=== PATIENT | female | born 1985 | race Caucasian/White ===

== ENCOUNTER 2016-11-26 17:36 | Emergency (ER) | payer MEDICAID ==
[~2016-11-26] VITALS: Ht 172.7 cm; Wt 78.0 kg
[~2016-11-26 17:36] MED LIST: LACO150T2 PO
[2016-11-26 17:53] VITALS: Ht 172.7 cm; Wt 78.0 kg
[2016-11-26] MEDS ORDERED: morphine 4 MG/ML VIAL IV STA (18:59)
[2016-11-26] MEDS ORDERED: SOD CHLORIDE 0.9% 1,000 ML IV STA (18:59)
[2016-11-26] MEDS ORDERED: FAMOTIDINE 20 MG INJ IV STA (18:59)
[2016-11-26] MEDS ORDERED: ONDANSETRON 4 MG INJ IV STA (18:59)
--- NOTE | 2016-11-26 19:42 | ERD ---
ER Documentation Chief Complaint Date/Time DATE: 11/26/16 TIME: 19:39 Chief Complaint GENERALIZED ABD PAIN AND DIARRHEA X 6 DAYS HPI Patient is a 49-year-old female with a past medical history of epilepsy who presents to the emergency department with generalized abdominal pain and diarrhea 6 days. Patient states that her pain is very upper quadrant and now has progressed to being diffuse. Patient describes the pain to be crampy and sharp in nature. Patient also reports diarrhea for the last 6 days. She states that her stools are yellow watery in color. She denies any blood. Patient reports 4 days 5 episodes of diarrhea daily. Patient states she's taken Pepto- Bismol with no alleviation of symptoms. Denies any fevers, chills, nausea, vomiting. She denies any vaginal bleeding, vaginal discharge, pelvic pain. Patient denies any recent antibiotic use. Patient denies any sick contacts. Patient states that she recently travelled to [facility], returned 6 days ago. He denies any chest pain, shortness of breath, diaphoresis, or loss of consciousness. She reports decreased appetite however she is able to tolerate by mouth fluids. She states that she's been drinking soda given that it helps with the cramping. ROS All systems reviewed and are negative except as per history of present illness. Medications Home Meds Active Scripts Acetaminophen* (Tylophen*) 500 Mg Capsule, 1 CAP PO Q6H Y for PAIN AND OR ELEVATED TEMP, #20 CAP Prov:MARIELY CRUZ PA-C 11/26/16 Ciprofloxacin Hcl* (Ciprofloxacin Hcl*) 500 Mg Tablet, 500 MG PO BID for 3 Days , TAB Prov:MARIELY CRUZ PA-C 11/26/16 Reported Medications Lacosamide (Vimpat) 150 Mg Tablet, 150 MG PO BID, TAB 07/31/16 Allergies Allergies: Coded Allergies: No Known Drug Allergies (Verified Allergy, Unknown, 07/31/16) PMhx/Soc History of Surgery: Yes () Anesthesia Reaction: No Hx Neurological Disorder: Yes (Epilepsy) Hx Respiratory Disorders: No Hx Cardiac Disorders: No Hx Psychiatric Problems: No Hx Miscellaneous Medical Probl: No Hx Alcohol Use: No Hx Substance Use: No Hx Tobacco Use: No FmHx Family History: No diabetes Physical Exam Vitals Vital Signs Date Time Temp Pulse Resp B/P Pulse Ox O2 Delivery O2 Flow Rate FiO2 11/26/16 17:53 98.3 57 19 109/49 98 Physical Exam GENERAL: Well-developed, well-nourished female. Appears in no acute distress. HEAD: Normocephalic, atraumatic. EYES: Pupils are equally reactive bilaterally. EOMs grossly intact. No conjunctival erythema. ENT: Moist mucous membranes. No uvula deviation. No kissing tonsils. NECK: Supple. No lymphadenopathy or thyromegaly. No meningismus. LUNG: Clear to auscultation bilaterally. No rhonchi, wheezing, rales or coarse breath sounds. HEART: Regular rate and rhythm. No murmurs, rubs or gallops. ABDOMEN: No scars, ecchymosis or rashes noted. Soft, and nondistended. Diffusely tender to palpation in all quadrants. More diffuse in LLQ and LUQ. Positive bowel sounds in all four quadrants. No rebound tenderness, no guarding. (-) McBurneys point tenderness. No CVA tenderness. BACK: No midline tenderness. EXTREMITIES: Equal pulses bilaterally. No peripheral clubbing, cyanosis or edema. No unilateral leg swelling. NEUROLOGIC: Alert and oriented. Moving all four extremities without any difficulty. Normal speech. Steady gait. SKIN: Normal color. Warm and dry. No rashes or lesions. Result Diagram: 11/26/16194911/26/161949 Results 24 hrs Laboratory Tests Test 11/26/16 19:50 Alanine Aminotransferase (ALT/SGPT) 55IU/L Albumin 4.4g/dl Albumin/Globulin Ratio 1.25 Alkaline Phosphatase 74IU/L Anion Gap 19 Aspartate Amino Transf (AST/SGOT) 57IU/L Basophils # 0.010^3/ul Basophils % 0.3% Blood Morphology Comment Blood Urea Nitrogen 7mg/dl Calcium Level 9.4mg/dl Carbon Dioxide Level 29mmol/L Chloride Level 100mmol/L Creatinine 0.66mg/dl Direct Bilirubin 0.00mg/dl Eosinophils # 0.310^3/ul Eosinophils % 3.6% Globulin 3.50g/dl Glucose Level 107mg/dl Hematocrit 37.8% Hemoglobin 13.1g/dl Indirect Bilirubin 0.4mg/dl Lipase 121U/L Lymphocytes # 2.310^3/ul Lymphocytes % 26.4% Mean Corpuscular Hemoglobin 29.5pg Mean Corpuscular Hemoglobin Concent 34.6g/dl Mean Corpuscular Volume 85.3fl Mean Platelet Volume 7.2fl Monocytes # 0.610^3/ul Monocytes % 6.9% Neutrophils # 5.410^3/ul Neutrophils % 62.8% Nucleated Red Blood Cells # 0.010^3/ul Nucleated Red Blood Cells % 0.0/100WBC Platelet Count 19879^3/UL Potassium Level 3.5mmol/L Red Blood Count 4.4310^6/ul Red Cell Distribution Width 12.9% Sodium Level 144mmol/L Total Bilirubin 0.4mg/dl Total Protein 7.9g/dl White Blood Count 8.610^3/ul Current Medications Medications (Trade) Dose Ordered Sig/Gray Route PRN Reason Start Time Stop Time Status Last Admin Dose Admin Sodium Chloride (NS) 1,000 ml @ 1,000 mls/hr Q1H STAT IV 11/26/16 18:59 11/26/16 19:58 DC 11/26/16 20:00 Morphine Sulfate (morphine) 4 mg ONCE STAT IV 11/26/16 18:59 11/26/16 19:07 DC 11/26/16 20:01 Ondansetron HCl (Zofran Inj) 4 mg ONCE STAT IV 11/26/16 18:59 11/26/16 19:07 DC 11/26/16 20:01 Famotidine (Pepcid Iv) 20 mg ONCE STAT IV 11/26/16 18:59 11/26/16 19:07 DC 11/26/16 20:02 Procedures/MDM ED COURSE: The patient was stable throughout ED course. I kept the patient and/or family informed of laboratory and diagnostic imaging results throughout the ED course. DIAGNOSTIC IMAGING: Read by radiologist. DIAGNOSTIC IMAGING REPORT Patient: SANTO HEBERT : 1985 Age: 30 Sex: F MR #: [id number] DOS: 11/26/16 1859 Ordering MD: MARIELY CRUZ PA-C Location: [facility] Room/Bed: PROCEDURE: CT abdomen and pelvis without contrast. CLINICAL INDICATION: Generalized abdominal pain and diarrhea TECHNIQUE: CT scan of the abdomen and pelvis without contrast was performed on a multislice CT scanner utilizing axial imaging from the lung bases through the pubis symphysis. The patient was scanned without intravenous contrast. Sagittal and coronal reformatted images were made. The CTDIvol is 13.30 mGy and the DLP is 757.08 mGycm. One of the following 3 dose reduction techniques were used during this CT examination: automated exposure control; adjustment of the mA and /or kV according to patient size; or use of iterative reconstruciton technique. COMPARISON: 03/31/2008 CT abdomen pelvis FINDINGS: The lung bases are clear. The heart size is normal. No pericardial or pleural effusion is present. The visualized liver, spleen, pancreas, gallbladder, and bilateral adrenal glands are normal. The bilateral kidneys are normal without evidence for hydroureter nephrosis or nephroureterolithiasis. The visualized bowel is nonobstructive. No evidence for diverticulosis, diverticulitis, or appendicitis is present. The appendix is normal. The visualized aorta demonstrates no evidence for aneurysmal dilatation or calcifications. No evidence for ascites or pneumoperitoneum. The visualized pelvis demonstrates a decompressed urinary bladder. An intrauterine device is present in the uterus. No evidence for ascites or masses are present. No pathologic lymphadenopathy is present. The evaluation of the imaged osseous structures are normal. IMPRESSION: 1. No evidence for acute intra-abdominal or pelvic pathology. 2. Intrauterine device present in the endometrial cavity. 3. No evidence for pathologic masses, ascites, or pneumoperitoneum. RPTAT: HDC .Mariam Aceves MD, MD Date Time Electronically viewed and signed by .Mariam Aceves MD, MD on 11/26/2016 20: 31 .C/ CC: MARIELY CRUZ PA-C MEDICATIONS GIVEN: IV fluids, Zofran, morphine Patient tolerated medication well with no adverse reactions. Patient reported improvement in pain. MEDICAL DECISION MAKING: This is a 30-year-old female who presents with diffuse abdominal pain and diarrhea 6 days. She reported recent travel to [facility]. Vital signs were reviewed. Patient is afebrile. Abdominal exam revealed diffuse tenderness to palpation in all 4 quadrants. Left upper and left lower quadrants with significant tenderness palpation. CT abdomen and pelvis showed no evidence of acute intra-abdominal or pelvic pathology. CBC showed no evidence of systemic infection or severe anemia. CMP showed no evidence of electrolyte abnormalities, severe acidosis, alkalosis, renal failure, or liver disease. Lipase showed no evidence of acute pancreatitis. Urine test was negative. Patient was unable to provide an adequate amount of urine for UA. At this time unable to rule out UTI or pyelonephritis. At this time, patient's presentation is most consistent with traveler's diarrhea. I have a much lower clinical concern for acute coronary syndrome, mesenteric ischemia, lower lobe pneumonia, DKA, small bowel obstruction, bowel perforation, cholecystitis, choledocholithiasis, hepatic abscess, pancreatitis, diverticulitis, UTI, pyelonephritis, nephrolithiasis, appendicitis, constipation, , PID, ovarian torsion or tubo-ovarian abscess. Stool cultures pending. PRESCRIPTIONS: Ciprofloxacin x 3 days Tylenol DISCHARGE: At this time, patient is stable for discharge and outpatient management. Patient was advised to drink adequate fluids. I have instructed the patient to follow-up with his/her primary care physician in 1-2 days. I have instructed the patient to promptly return to the ER at any time for any new or worsening symptoms including increased pain, nausea, vomiting, diarrhea, fever, weakness or LOC. The patient and/or family expressed understanding of and agreement with this plan. All questions were answered. Home care instructions were provided. Departure Diagnosis: Primary Impression: Diarrhea Diarrhea type: unspecified type Qualified Code: R19.7 - Diarrhea, unspecified type Additional Impression: Abdominal cramps Condition: Stable Patient Instructions: Traveler's Diarrhea (6Y-Adult) Referrals: [facility] YOU HAVE RECEIVED A MEDICAL SCREENING EXAM AND THE RESULTS INDICATE THAT YOU DO NOT HAVE A CONDITION THAT REQUIRES URGENT TREATMENT IN THE EMERGENCY DEPARTMENT. FURTHER EVALUATION AND TREATMENT OF YOUR CONDITION CAN WAIT UNTIL YOU ARE SEEN IN YOUR DOCTORS OFFICE WITHIN THE NEXT 1-2 DAYS. IT IS YOUR RESPONSIBILITY TO MAKE AN APPOINTMENT FOR FOLOW-UP CARE. IF YOU HAVE A PRIMARY DOCTOR --you should call your primary doctor and schedule an appointment IF YOU DO NOT HAVE A PRIMARY DOCTOR YOU CAN CALL OUR PHYSICIAN REFERRAL HOTLINE AT IF YOU CAN NOT AFFORD TO SEE A PHYSICIAN YOU CAN CHOSE FROM THE FOLLOWING [facility] CLINICS [facility] [address] [facility]. [place] [facility] [address] [facility] [address] [facility] [address] [facility] [address] [facility]. [facility] [address] [facility]. [facility] YOU HAVE RECEIVED A MEDICAL SCREENING EXAM AND THE RESULTS INDICATE THAT YOU DO NOT HAVE A CONDITION THAT REQUIRES URGENT TREATMENT IN THE EMERGENCY DEPARTMENT. FURTHER EVALUATION AND TREATMENT OF YOUR CONDITION CAN WAIT UNTIL YOU ARE SEEN IN YOUR DOCTORS OFFICE WITHIN THE NEXT 1-2 DAYS. IT IS YOUR RESPONSIBILITY TO MAKE AN APPOINTMENT FOR FOLOW-UP CARE. IF YOU HAVE A PRIMARY DOCTOR --you should call your primary doctor and schedule and appointment IF YOU DO NOT HAVE A PRIMARY DOCTOR YOU CAN CALL OUR PHYSICIAN REFERRAL HOTLINE AT . IF YOU CAN NOT AFFORD TO SEE A PHYSICIAN YOU CAN CHOSE FROM THE FOLLOWING [facility] INSTITUTIONS: [facility] [address] [place] [address] [facility] [address] [place] [address] [facility] [address] [place] [address] Additional Instructions: Drink lots of fluids. Take antibiotics as prescribed. Complete full course of antibiotics. Call your primary care doctor TOMORROW for an appointment during the next 1-2 days.See the doctor sooner or return here if your condition worsens before your appointment time. MARIELY CRUZ PA-C Nov 26, 2016 19:42
[2016-11-26 20:14] LABS: ALBUMIN 4.4 g/dl (3.3-4.9)
[2016-11-26 20:15] LABS: POTASSIUM 3.5 mmol/L (3.5-5.1)
[2016-11-26 20:16] LABS: BASOPHILS % 0.3 % (0.0-2.0); EOSINOPHILS # 0.3 10^3/ul (0.0-0.5); EOSINOPHILS % 3.6 % (0.0-7.0); HEMATOCRIT 37.8 % (37.0-47.0); HEMOGLOBIN 13.1 g/dl (12.0-16.0); LYMPHOCYTES # 2.3 10^3/ul (0.8-2.9); LYMPHOCYTES % 26.4 % (15.0-51.0); MEAN CORPUSCULAR HEMOGLOBIN 29.5 pg (29.0-33.0); MEAN CORPUSCULAR HGB CONC 34.6 g/dl (32.0-37.0); MEAN CORPUSCULAR VOLUME 85.3 fl (82.0-101.0); MEAN PLATELET VOLUME 7.2 fl (7.4-10.4); MONOCYTE # 0.6 10^3/ul (0.3-0.9); MONOCYTES % 6.9 % (0.0-11.0); NEUTROPHIL # 5.4 10^3/ul (1.6-7.5); NEUTROPHILS % 62.8 % (39.0-77.0); PLATELET COUNT 302 10^3/UL (140-440); RED BLOOD COUNT 4.43 10^6/ul (4.20-5.40); RED CELL DISTRIBUTION WIDTH 12.9 % (11.5-14.5); UNCORRECTED WBC 8.6 10^3/ul (4.8-10.8); WHITE BLOOD COUNT 8.6 10^3/ul (4.8-10.8)
[2016-11-26 20:17] LABS: ALBUMIN/GLOBULIN RATIO 1.25; BILIRUBIN,INDIRECT 0.4 mg/dl (0-1.1); BILIRUBIN,TOTAL 0.4 mg/dl (0.2-1.3); CREATININE 0.66 mg/dl (0.44-1.00); TOTAL PROTEIN 7.9 g/dl (6.1-8.1)
[2016-11-26 20:18] LABS: CALCIUM 9.4 mg/dl (8.4-10.2)
[2016-11-26 20:27] LABS: CONDITION 1
--- NOTE | 2016-11-26 20:31 | RADRPT ---
PROCEDURE: CT abdomen and pelvis without contrast. CLINICAL INDICATION: Generalized abdominal pain and diarrhea TECHNIQUE: CT scan of the abdomen and pelvis without contrast was performed on a multislice CT [facility] utilizing axial imaging from the lung bases through the pubis symphysis. The patient was scann ed without intravenous contrast. Sagittal and coronal reformatted images were made. The CTDIvol is 13.30 mGy and the DLP is 757.08 mGycm. One of the following 3 dose reduction techniques were used during this CT examination: automated exp osure control; adjustment of the mA and /or kV according to patient size; or use of iterative recons truciton technique. COMPARISON: 03/31/2008 CT abdomen pelvis FINDINGS: The lung bases are clear. The heart size is normal. No pericardial or pleural effusion is present. The visualized liver, spleen, pancreas, gallbladder, and bilateral adrenal glands are normal. The b ilateral kidneys are normal without evidence for hydroureter nephrosis or nephroureterolithiasis. The visualized bowel is nonobstructive. No evidence for diverticulosis, diverticulitis, or appendic itis is present. The appendix is normal. The visualized aorta demonstrates no evidence for aneurysmal dilatation or calcifications. No eviden ce for ascites or pneumoperitoneum. The visualized pelvis demonstrates a decompressed urinary bladder. An intrauterine device is presen t in the uterus. No evidence for ascites or masses are present. No pathologic lymphadenopathy is p resent. The evaluation of the imaged osseous structures are normal. IMPRESSION: 1. No evidence for acute intra-abdominal or pelvic pathology. 2. Intrauterine device present in the endometrial cavity. 3. No evidence for pathologic masses, ascites, or pneumoperitoneum. RPTAT: HDC .Mariam Aceves MD, MD Date Time Electronically viewed and signed by .Mariam Aceves MD, MD on 11/26/2016 20:31 .C/
[2016-11-26] MEDS ORDERED: CIPR500T4 PO (21:04)
[2016-11-26] MEDS ORDERED: ACET500C5 PO (21:05)
== END 2016-11-26 21:25 | disposition home or self-care (01) ==
LOC: FTE 17:36
DX: R19.7 Diarrhea, unspecified (principal)
CPT/HCPCS: 36415; 74176; 80053; 83690; 85025; 96374; 96375; J2270; J2405; J7030; Z7502; Z7610

== ENCOUNTER 2017-01-05 17:35 | Emergency (ER) | payer MEDICAID ==
[~2017-01-05] VITALS: Wt 80.1 kg
[~2017-01-05 17:35] MED LIST changes: +ACET500C5 PO; +CIPR500T4 PO
[2017-01-05] MEDS ORDERED: IBUPROFEN 800 MG TAB PO ONE (18:00)
--- NOTE | 2017-01-05 18:36 | RADRPT ---
PROCEDURE: XR sacrum/coccyx CLINICAL INDICATION: Fall, low back pain TECHNIQUE: 3 images of the sacrum and coccyx COMPARISON: CT of the abdomen and pelvis dated November 26, 2015 and radiographs of the lumbar spin e January 05, 2016 FINDINGS: There is a questionable minimally-displaced cortical offset along the anterior margin of the coccyx near the sacrococcygeal junction. 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 There are no erosions. There is an IUD in the pelvis. The soft tissues are otherwise grossly unremarkable. IMPRESSION: 1. Questionable anterior cortical offset at the sacrococcygeal junction may represent a minimally-d isplaced fracture in the setting of recent trauma. CT can be considered for confirmation as clinical ly indicated. 2. IUD within the pelvis. RPTAT: UU .Heath Church MD, MD Date Time Electronically viewed and signed by .Heath Church MD, on 01/05/2017 18:35 .K/
--- NOTE | 2017-01-05 18:37 | RADRPT ---
PROCEDURE: XR Lumbar Spine. CLINICAL INDICATION: Low back pain TECHNIQUE: 3 images of the lumbar spine were obtained. COMPARISON: No prior studies are available for comparison. FINDINGS: There are 5 non rib-bearing lumbar type vertebral bodies. Vertebral body height and alignment is preserved. There is no radiographic evidence of acute fracture or subluxation. Intervertebral disk spaces are preserved. Paraspinal soft tissues are grossly unremarkable. Mild sclerosis at the sacroiliac joints is noted. There is an IUD within the pelvis. IMPRESSION: 1. No radiographic evidence of acute osseous abnormality of the lumbar spine. RPTAT: UU .Heath Church MD, MD Date Time Electronically viewed and signed by .Heath Church MD, on 01/05/2017 18:36 .K/
--- NOTE | 2017-01-05 19:03 | ERD ---
ER Documentation Chief Complaint Date/Time DATE: 01/05/17 TIME: 18:54 Chief Complaint LOW BACK PAIN S/P GLF, NO KO HPI This a 31-year-old female who presents to the emergency department today complaining of low back and tailbone pain after slipping and falling in the snow today. Patient states she put an icy hot patch on. She has not taken any other medication for the pain. States she has pain when she sits down. Suggest a history of seizure disorder. Denies any fevers or chills, loss of bowel or bladder control. ROS All systems reviewed and are negative except as per history of present illness. Medications Home Meds Active Scripts Hydrocodone/Acetaminophen (Given 5-325 Tablet) 1 Each Tablet, 1 TAB PO Q6H Y for PAIN, #12 TAB Prov:ROXANA PALM PA-C 01/05/17 Acetaminophen* (Tylophen*) 500 Mg Capsule, 1 CAP PO Q6H Y for PAIN AND OR ELEVATED TEMP, #30 CAP Prov:ROXANA PALM PA-C 01/05/17 Ibuprofen* (Motrin*) 600 Mg Tab, 600 MG PO Q6, #30 TAB Prov:ROXANA PALM PA-C 01/05/17 Acetaminophen* (Tylophen*) 500 Mg Capsule, 1 CAP PO Q6H Y for PAIN AND OR ELEVATED TEMP, #20 CAP Prov:MARIELY CRUZ PA-C 11/26/16 Ciprofloxacin Hcl* (Ciprofloxacin Hcl*) 500 Mg Tablet, 500 MG PO BID for 3 Days , TAB Prov:MARIELY CRUZ PA-C 11/26/16 Reported Medications Lacosamide (Vimpat) 150 Mg Tablet, 150 MG PO BID, TAB 07/31/16 Allergies Allergies: Coded Allergies: No Known Drug Allergies (Verified Allergy, Unknown, 07/31/16) PMhx/Soc History of Surgery: Yes () Anesthesia Reaction: No Hx Neurological Disorder: Yes (Epilepsy) Hx Respiratory Disorders: No Hx Cardiac Disorders: No Hx Psychiatric Problems: No Hx Miscellaneous Medical Probl: No Hx Alcohol Use: No Hx Substance Use: No Hx Tobacco Use: No Smoking Status: Never smoker Physical Exam Vitals Vital Signs Date Time Temp Pulse Resp B/P Pulse Ox O2 Delivery O2 Flow Rate FiO2 01/05/17 17:37 98.9 104 18 114/58 100 Physical Exam Const: No acute distress Head: Atraumatic Eyes: Normal Conjunctiva ENT: Normal External Ears, Nose and Mouth. Neck: Full range of motion..~ No meningismus. Resp: Clear to auscultation bilaterally Cardio: Regular rate and rhythm, no murmurs Abd: Soft, non tender, non distended. Normal bowel sounds Skin: Tenderness to palpation midline lumbar spine and sacrum and coccyx pulses 2+. Distal neurovascularly intact. Pulses 2+. Neur: Awake and alert Psych: Normal Mood and Affect Results 24 hrs Current Medications Medications (Trade) Dose Ordered Sig/Gray Route PRN Reason Start Time Stop Time Status Last Admin Dose Admin Ibuprofen (Motrin) 800 mg ONCE ONCE PO 01/05/17 18:00 01/05/17 18:01 DC 01/05/17 18:05 DIAGNOSTIC IMAGING REPORT Patient: SANTO HEBERT : 1985 Age: 31 Sex: F MR #: [id number] DOS: 01/05/17 0000 Ordering MD: RXOANA PALM PA-C Location: [facility] Room/Bed: PROCEDURE: XR Lumbar Spine. CLINICAL INDICATION: Low back pain TECHNIQUE: 3 images of the lumbar spine were obtained. COMPARISON: No prior studies are available for comparison. FINDINGS: There are 5 non rib-bearing lumbar type vertebral bodies. Vertebral body height and alignment is preserved. There is no radiographic evidence of acute fracture or subluxation. Intervertebral disk spaces are preserved. Paraspinal soft tissues are grossly unremarkable. Mild sclerosis at the sacroiliac joints is noted. There is an IUD within the pelvis. IMPRESSION: 1. No radiographic evidence of acute osseous abnormality of the lumbar spine. RPTAT: UU .Heath Church MD, Date Time Electronically viewed and signed by .Heath Church MD, MD on 01/05/2017 18: 36 .K/ CC: ROXANA PALM PA-C DIAGNOSTIC IMAGING REPORT Patient: SANTO HEBERT : 1985 Age: 31 Sex: F MR #: [id number] DOS: 01/05/17 0000 Ordering MD: ROXANA PALM PA-C Location: [facility] Room/Bed: PROCEDURE: XR sacrum/coccyx CLINICAL INDICATION: Fall, low back pain TECHNIQUE: 3 images of the sacrum and coccyx COMPARISON: CT of the abdomen and pelvis dated November 26, 2015 and radiographs of the lumbar spine January 05, 2016 FINDINGS: There is a questionable minimally-displaced cortical offset along the anterior margin of the coccyx near the sacrococcygeal junction. 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 There are no erosions. There is an IUD in the pelvis. The soft tissues are otherwise grossly unremarkable. IMPRESSION: 1. Questionable anterior cortical offset at the sacrococcygeal junction may represent a minimally-displaced fracture in the setting of recent trauma. CT can be considered for confirmation as clinically indicated. 2. IUD within the pelvis. RPTAT: UU .Heath Church MD, MD Date Time Electronically viewed and signed by .Heath Church MD, on 01/05/2017 18: 35 .K/ CC: ROXANA PALM PA-C Procedures/MDM Is a 31-year-old female presents to the emergency department today complaining of back and tailbone pain after slipping and falling in the snow earlier today. I did obtain images given the patient's trauma. Per the radiology report images of the lumbar spine show no radiographic evidence of acute osseous abnormality of the lumbar spine. There is no acute fracture dislocation. Vertebral body height and alignment is preserved. Intervertebral disc spaces preserved Images of the sacrum and coccyx show a questionable anterior cortical offset of the sacrococcygeal junction that may represent a minimally displaced fracture. I have explained this to the patient. I do not feel that this would change my management and therefore do not feel that the patient requires a CT scan at this time. Patient was given Motrin in the emergency department. I will give her a prescription for a short course of Given for home as well as Motrin and Tylenol. She was instructed to follow-up with her primary care doctor for referral for possible network and threat support specialist. Patient understood and agreed with the plan. At this time the patient is stable for discharge and outpatient management. Patient should follow up with their PCP in the next 1-2 days. They may return to the emergency department sooner for any persistent or worsening of symptoms. Patient understood and agreed with the plan. I discussed imaging findings with Dr. Nguyen and he is in agreement with the plan. Departure Diagnosis: Primary Impression: Injury of coccyx Encounter type: initial encounter Qualified Code: S39.92XA - Injury of coccyx, initial encounter ROXANA PALM PA-C Jan 05, 2017 19:03
[2017-01-05] MEDS ORDERED: IBUP-1542 PO (19:07)
[2017-01-05] MEDS ORDERED: ACET500C5 PO (19:07)
[2017-01-05] MEDS ORDERED: HYDR-906 PO (19:08)
== END 2017-01-05 19:22 | disposition home or self-care (01) ==
LOC: FTE 17:35
DX: S39.92XA Unspecified injury of lower back, initial encounter (principal); W00.0XXA Fall on same level due to ice and snow, initial encounter; Y92.9 Unspecified place or not applicable
CPT/HCPCS: 72100; 72220; Z7502; Z7610

== ENCOUNTER 2017-06-19 08:34 | Emergency (ER) | payer MEDICAID ==
[~2017-06-19] VITALS: Ht 170.2 cm; Wt 76.0 kg
[~2017-06-19 08:34] MED LIST changes: +HYDR-906 PO; +IBUP-1542 PO
--- NOTE | 2017-06-19 08:46 | ERD ---
ER Documentation Chief Complaint Date/Time DATE: 06/19/17 TIME: 08:44 Chief Complaint HPI 31-year-old female with a long history of seizure disorder since age of 9 brought to the ED via rescue ambulance after witnessed tonic-clonic seizure lasting 1-2 minutes. Patient apparently fell back and hit her head and complains of mild headache but no neck pain. No intraoral injury or tongue biting. Admits to poor compliance with anticonvulsant medication. Denies URI symptoms, rhinorrhea or cough. No shortness of breath, chest pain or palpitations. Denies abdominal pain or back pain. No nausea vomiting. No change in sleep patterns or insomnia. Denies depression. No fevers or chills. ROS All systems reviewed and are negative except as per history of present illness. Medications Home Meds Active Scripts Hydrocodone/Acetaminophen ([place] 5-325 Tablet) 1 Each Tablet, 1 TAB PO Q6H Y for PAIN, #12 TAB Prov:ROXANA PALM PA-C 01/05/17 Acetaminophen* (Tylophen*) 500 Mg Capsule, 1 CAP PO Q6H Y for PAIN AND OR ELEVATED TEMP, #30 CAP Prov:ROXANA PALM PA-C 01/05/17 Ibuprofen* (Motrin*) 600 Mg Tab, 600 MG PO Q6, #30 TAB Prov:ROXANA PALM PA-C 01/05/17 Acetaminophen* (Tylophen*) 500 Mg Capsule, 1 CAP PO Q6H Y for PAIN AND OR ELEVATED TEMP, #20 CAP Prov:MARIELY CRUZ PA-C 11/26/16 Ciprofloxacin Hcl* (Ciprofloxacin Hcl*) 500 Mg Tablet, 500 MG PO BID for 3 Days , TAB Prov:MARIELY CRUZ PA-C 11/26/16 Reported Medications Lacosamide (Vimpat) 150 Mg Tablet, 150 MG PO BID, TAB 07/31/16 Allergies Allergies: Coded Allergies: No Known Drug Allergies (Verified Allergy, Unknown, 07/31/16) PMhx/Soc Reviewed in chart. As per HPI. History of Surgery: Yes () Anesthesia Reaction: No Hx Neurological Disorder: Yes (Epilepsy) Hx Respiratory Disorders: No Hx Cardiac Disorders: No Hx Psychiatric Problems: No Hx Miscellaneous Medical Probl: No Hx Alcohol Use: No Hx Substance Use: No Hx Tobacco Use: No FmHx Sudden cardiac or cancer. Physical Exam Vitals Vital Signs Date Time Temp Pulse Resp B/P Pulse Ox O2 Delivery O2 Flow Rate FiO2 06/19/17 08:53 98.3 111 19 100/68 100 Physical Exam Const: Alert, no acute distress. Head: Atraumatic Eyes: Normal Conjunctiva. Pupils equal reactive to light. Extraocular movements are intact. ENT: Normal External Ears, Nose and Mouth. Negative batista sign. Neck: Full range of motion. No meningismus. No midline bony tenderness or paraspinal muscle spasm. Resp: Breath sounds are equal and clear to auscultation bilaterally Cardio: Regular rate and rhythm, no murmurs Abd: Soft, non tender, non distended. Normal bowel sounds Skin: No petechiae or rashes Back: No midline or flank tenderness Ext: No cyanosis, or edema Neur: Awake and alert. No facial droop. Cranial nerves II through XII are grossly intact. Motor and sensory equal bilaterally. No focal deficit observed. Psych: Normal Mood and Affect. Patient does not appear anxious or depressed. Result Diagram: 06/19/17 0850 06/19/17 0850 Results 24 hrs Laboratory Tests Test 06/19/17 08:50 White Blood Count 8.010^3/ul Red Blood Count 4.3410^6/ul Hemoglobin 12.5g/dl Hematocrit 38.0% Mean Corpuscular Volume 87.6fl Mean Corpuscular Hemoglobin 28.8pg Mean Corpuscular Hemoglobin Concent 32.9g/dl Red Cell Distribution Width 12.4% Platelet Count 15651^3/UL Mean Platelet Volume 9.8fl Neutrophils % 65.6% Lymphocytes % 24.1% Monocytes % 5.6% Eosinophils % 3.7% Basophils % 0.4% Nucleated Red Blood Cells % 0.0/100WBC Neutrophils # 5.310^3/ul Lymphocytes # 1.910^3/ul Monocytes # 0.510^3/ul Eosinophils # 0.310^3/ul Basophils # 0.010^3/ul Nucleated Red Blood Cells # 0.010^3/ul Sodium Level 143mmol/L Potassium Level 4.1mmol/L Chloride Level 104mmol/L Carbon Dioxide Level 19mmol/L Anion Gap 24 Blood Urea Nitrogen 10mg/dl Creatinine 0.83mg/dl Glucose Level 137mg/dl Calcium Level 9.0mg/dl Current Medications Medications (Trade) Dose Ordered Sig/Gray Route PRN Reason Start Time Stop Time Status Last Admin Dose Admin Lacosamide (Vimpat Liq) 150 mg ONCE ONCE PO 06/19/17 09:00 06/19/17 09:01 DC Ketorolac Tromethamine (Toradol) 15 mg ONCE STAT IV 06/19/17 09:45 06/19/17 09:46 DC 06/19/17 10:21 Lacosamide (Vimpat Liq) 150 mg ONCE ONCE PO 06/19/17 10:00 06/19/17 10:01 DC PROCEDURE: CT Brain without. CLINICAL INDICATION: Injury seizure, headache. TECHNIQUE: A CT of the brain was performed on multidetector high-resolution CT scanner utilizing axial sections from the skull base through the vertex without contrast. The scan was reviewed in soft tissue brain and high frequency resolution bone algorithm windows. Images were reviewed on a high- resolution PACS workstation. One or more the following does reduction techniques were utilized: Automated exposure control, adjustment of the mA/ or kV according to patient's size, or use of iterative reconstruction technique. The exam CTDI = 43.40 mGy and the DLP = 720.23 mGy-cm. COMPARISON: Brain CT 10/07/2008. FINDINGS: The ventricles and sulci are age-appropriate. There is no intracranial hemorrhage, mass effect or midline shift. No abnormal intra-axial or extra- axial fluid collections are seen. The reyes/white matter differentiation is preserved. Small old lacunar infarct is noted in the left lentiform nucleus. No acute skull abnormality is noted. The visualized paranasal sinuses are essentially clear. IMPRESSION: 1. No acute intracranial hemorrhage, transcortical infarction or mass effect. If clinical concern persists consider brain MRI. 2. Small old lacunar infarct is noted in the left lentiform nucleus. RPTAT: HH .Darcy Cabrera MD, Date Time Electronically viewed and signed by .Darcy Cabrera MD, on 06/19/2017 10: 21 .N/ Procedures/MDM DOCUMENTS REVIEWED: ED nurse, prior ED, prior records REEXAMINATION/REEVALUATION: Time:10:25. Doing well. Alert and oriented. MEDICAL DECISION MAKIN-year-old female with a long history of seizure disorder since age of 9 brought to the ED via rescue ambulance after witnessed tonic-clonic seizure lasting 1-2 minutes. Patient with recurrent seizure secondary to noncompliance with Vimpat. Vimpat 150 mg orally given. No evidence of an occult infectious process. Head injury but CT of the brain is negative for infarct, bleed, mass or hydrocephalus. No neck pain or indication for cervical spine imaging. Stable for discharge with precautionary instructions and outpatient follow-up as counseled. Counseled patient regarding diagnostic workup, diagnosis and need for followup. Understands to return to ED if symptoms recur, worsen or any other concerns. Departure Diagnosis: Primary Impression: Seizure Additional Impressions: Seizure disorder Noncompliance with medication regimen Condition: Stable LYN GALE MD Jun 19, 2017 08:45
[2017-06-19 08:53] VITALS: Ht 170.2 cm; Wt 76.0 kg
[2017-06-19] MEDS ORDERED: LACOSAMIDE (100 MG/10 ML PO SYR) PO ONE ×2 (09:00→10:00)
[2017-06-19 09:26] LABS: BASOPHILS % 0.4 % (0.0-2.0); EOSINOPHILS # 0.3 10^3/ul (0.0-0.5); EOSINOPHILS % 3.7 % (0.0-7.0); HEMOGLOBIN 12.5 g/dl (12.0-16.0); LYMPHOCYTES # 1.9 10^3/ul (0.8-2.9); LYMPHOCYTES % 24.1 % (15.0-51.0); MEAN CORPUSCULAR HEMOGLOBIN 28.8 pg (29.0-33.0); MEAN CORPUSCULAR HGB CONC 32.9 g/dl (32.0-37.0); MEAN CORPUSCULAR VOLUME 87.6 fl (82.0-101.0); MEAN PLATELET VOLUME 9.8 fl (7.4-10.4); MONOCYTE # 0.5 10^3/ul (0.3-0.9); MONOCYTES % 5.6 % (0.0-11.0); NEUTROPHIL # 5.3 10^3/ul (1.6-7.5); NEUTROPHILS % 65.6 % (39.0-77.0); PLATELET COUNT 250 10^3/UL (140-415); RED BLOOD COUNT 4.34 10^6/ul (4.20-5.40); RED CELL DISTRIBUTION WIDTH 12.4 % (11.5-14.5)
[2017-06-19 09:45] LABS: CREATININE 0.83 mg/dl (0.44-1.00); POTASSIUM 4.1 mmol/L (3.5-5.1)
[2017-06-19] MEDS ORDERED: KETOROLAC 15 MG INJ IV STA (09:45)
--- NOTE | 2017-06-19 10:21 | RADRPT ---
PROCEDURE: CT Brain without. CLINICAL INDICATION: Injury seizure, headache. TECHNIQUE: A CT of the brain was performed on multidetector high-resolution CT scanner utilizing a xial sections from the skull base through the vertex without contrast. The scan was reviewed in sof t tissue brain and high frequency resolution bone algorithm windows. Images were reviewed on a high -resolution PACS workstation. One or more the following does reduction techniques were utilized: Aut omated exposure control, adjustment of the mA/ or kV according to patient's size, or use of iterativ e reconstruction technique. The exam CTDI = 43.40 mGy and the DLP = 720.23 mGy-cm. COMPARISON: Brain CT 10/07/2008. FINDINGS: The ventricles and sulci are age-appropriate. There is no intracranial hemorrhage, mass effect or mi dline shift. No abnormal intra-axial or extra-axial fluid collections are seen. The reyes/white chandana er differentiation is preserved. Small old lacunar infarct is noted in the left lentiform nucleus. No acute skull abnormality is noted. The visualized paranasal sinuses are essentially clear. IMPRESSION: 1. No acute intracranial hemorrhage, transcortical infarction or mass effect. If clinical concern p ersists consider brain MRI. 2. Small old lacunar infarct is noted in the left lentiform nucleus. RPTAT: HH .Darcy Cabrera MD, MD Date Time Electronically viewed and signed by .Darcy Cabrera MD, MD on 06/19/2017 10:21 .N/
[2017-06-19 10:42] VITALS: BP 90/58; PULSE 80; RESP 20; TEMP 98.1
== END 2017-06-19 14:49 | disposition home or self-care (01) ==
LOC: E/R 08:34
DX: G40.909 Epilepsy, unspecified, not intractable, without status epilepticus (principal); R40.2142 Coma scale, eyes open, spontaneous, at arrival to emergency department; R40.2252 Coma scale, best verbal response, oriented, at arrival to emergency department; R40.2362 Coma scale, best motor response, obeys commands, at arrival to emergency department; Z91.14 Patient's other noncompliance with medication regimen
CPT/HCPCS: 36415; 70450; 80048; 85025; 96374; J1885; Z7502; Z7610

== ENCOUNTER 2017-06-23 08:27 | Emergency (ER) | payer MEDICAID ==
[~2017-06-23] VITALS: Ht 167.6 cm; Wt 75.5 kg
[2017-06-23 08:29] VITALS: Ht 167.6 cm; Wt 75.5 kg
--- NOTE | 2017-06-23 09:12 | ERD ---
ER Documentation Chief Complaint Date/Time DATE: 06/23/17 TIME: 09:12 Chief Complaint Complains of left upperquadrant pain x 2 days HPI This is a 31-year-old female presents emergency department today complaining of right-sided abdominal pain. Patient states she was here couple of days ago in the ER because she had a seizure. Denies any nausea vomiting, dysuria, fevers or chills ROS All systems reviewed and are negative except as per history of present illness. Medications Home Meds Active Scripts Naproxen* (Naprosyn*) 500 Mg Tablet, 500 MG PO BID Y for PAIN AND/OR INFLAMMATION, #30 TAB Prov:ROXANA PALMC 06/23/17 Nitrofurantoin Monohyd Macrocr* (Macrobid*) 100 Mg Capsr, 100 MG PO BID for 7 Days, CAP Prov:ROXANA PALMC 06/23/17 Hydrocodone/Acetaminophen ([place] 5-325 Tablet) 1 Each Tablet, 1 TAB PO Q6H Y for PAIN, #12 TAB Prov:ROXANA PALMC 01/05/17 Acetaminophen* (Tylophen*) 500 Mg Capsule, 1 CAP PO Q6H Y for PAIN AND OR ELEVATED TEMP, #30 CAP Prov:ROXANA PALMC 01/05/17 Ibuprofen* (Motrin*) 600 Mg Tab, 600 MG PO Q6, #30 TAB Prov:ROXANA PALMC 01/05/17 Acetaminophen* (Tylophen*) 500 Mg Capsule, 1 CAP PO Q6H Y for PAIN AND OR ELEVATED TEMP, #20 CAP Prov:MARIELY CRUZC 11/26/16 Ciprofloxacin Hcl* (Ciprofloxacin Hcl*) 500 Mg Tablet, 500 MG PO BID for 3 Days , TAB Prov:MARIELY CRUZC 11/26/16 Reported Medications Lacosamide (Vimpat) 150 Mg Tablet, 150 MG PO BID, TAB 07/31/16 Allergies Allergies: Coded Allergies: No Known Drug Allergies (Verified Allergy, Unknown, 07/31/16) PMhx/Soc History of Surgery: Yes () Anesthesia Reaction: No Hx Neurological Disorder: Yes (Epilepsy) Hx Respiratory Disorders: No Hx Cardiac Disorders: No Hx Psychiatric Problems: No Hx Miscellaneous Medical Probl: No Hx Alcohol Use: No Hx Substance Use: No Hx Tobacco Use: No Smoking Status: Never smoker Physical Exam Vitals Vital Signs Date Time Temp Pulse Resp B/P Pulse Ox O2 Delivery O2 Flow Rate FiO2 06/23/17 08:29 98.3 64 20 96/54 100 Physical Exam Const: No acute distress Head: Atraumatic Eyes: Normal Conjunctiva ENT: Normal External Ears, Nose and Mouth. Neck: Full range of motion..~ No meningismus. Resp: Clear to auscultation bilaterally. No absent breath sounds. No wheezing. Right-sided rib pain anteriorly with palpation Cardio: Regular rate and rhythm, no murmurs Abd: Soft, non tender, non distended. Normal bowel sounds. No epigastric pain. Negative Ballard sign. Skin: No petechiae or rashes Back: No midline or flank tenderness Ext: No cyanosis, or edema Neur: Awake and alert Psych: Normal Mood and Affect Result Diagram: 06/23/1791906/23/1720 Results 24 hrs Laboratory Tests Test 06/23/17 09:20 06/23/17 09:35 White Blood Count 8.310^3/ul Red Blood Count 4.6110^6/ul Hemoglobin 13.5g/dl Hematocrit 40.1% Mean Corpuscular Volume 87.0fl Mean Corpuscular Hemoglobin 29.3pg Mean Corpuscular Hemoglobin Concent 33.7g/dl Red Cell Distribution Width 12.3% Platelet Count 64262^3/UL Mean Platelet Volume 9.4fl Neutrophils % 67.7% Lymphocytes % 21.7% Monocytes % 6.8% Eosinophils % 3.2% Basophils % 0.4% Nucleated Red Blood Cells % 0.0/100WBC Neutrophils # 5.610^3/ul Lymphocytes # 1.810^3/ul Monocytes # 0.610^3/ul Eosinophils # 0.310^3/ul Basophils # 0.010^3/ul Nucleated Red Blood Cells # 0.010^3/ul Sodium Level 146mmol/L Potassium Level 4.5mmol/L Chloride Level 100mmol/L Carbon Dioxide Level 26mmol/L Anion Gap 25 Blood Urea Nitrogen 9mg/dl Creatinine 0.75mg/dl Glucose Level 84mg/dl Calcium Level 10.5mg/dl Total Bilirubin 0.5mg/dl Direct Bilirubin 0.00mg/dl Indirect Bilirubin 0.5mg/dl Aspartate Amino Transf (AST/SGOT) 26IU/L Alanine Aminotransferase (ALT/SGPT) 33IU/L Alkaline Phosphatase Pending Total Protein 8.5g/dl Albumin 4.9g/dl Globulin 3.60g/dl Albumin/Globulin Ratio 1.36 Lipase 110U/L Bedside Urine pH (LAB) 6.5 Bedside Urine Protein (LAB) Negative Bedside Urine Glucose (UA) Negative Bedside Urine Ketones (LAB) Negative Bedside Urine Blood 1+ Bedside Urine Nitrite (LAB) Negative Bedside Urine Leukocyte Esterase (L 2+ Current Medications Medications (Trade) Dose Ordered Sig/Gray Route PRN Reason Start Time Stop Time Status Last Admin Dose Admin Acetaminophen/ Hydrocodone Bitart ([place] (5/325)) 1 tab ONCE ONCE PO 06/23/17 09:30 06/23/17 09:31 DC 06/23/17 09:20 DIAGNOSTIC IMAGING REPORT Patient: SANTO HEBERT : 1985 Age: 31 Sex: F MR #: [id number] DOS: 06/23/17 0000 Ordering MD: ROXANA PALM PA-C Location: [facility] Room/Bed: PROCEDURE: XR Chest. CLINICAL INDICATION: Trauma, fall, right sided pain. TECHNIQUE: Single frontal chest x-ray. COMPARISON: None available FINDINGS: The lungs are clear. No focal opacification is seen. No pneumothorax or pleural effusion is seen. The cardiomediastinal silhouette is unremarkable. The osseous structures are grossly unremarkable. IMPRESSION: No evidence of acute cardiopulmonary disease. If there is concern for rib fracture recommend dedicated right rib series. RPTAT: JJ .Roger Valles MD, Date Time Electronically viewed and signed by .Roger Valles MD, on 06/23/2017 09:49 .A/ CC: ROXANA PALM PA-C Procedures/MDM This a 31-year-old female who presents the emergency department today complaining of right-sided pain after a fall. Upon review of patient's medical record she was seen here on June 19, 2017 brought in by rescue ambulance for a tonic-clonic seizure at her work that lasted 1-2 minutes. Patient has a history of seizure disorder since age 7 and admits to being noncompliant with her medications. On physical exam patient had some right-sided rib pain anteriorly. She does not have a positive Ballard sign and she has no epigastric pain, nausea vomiting or fevers and I do have lower suspicion that this is her gallbladder causing her pain however I did obtain laboratory work as well as a chest x-ray Laboratory workup shows no elevated white blood cell count. She is not anemic. Platelets are within normal limits. Sodium is very mildly elevated otherwise electro lites are within normal limits. Glucose within normal limits. Bilirubin is within normal limits. Liver enzymes are within normal limits. Lipase within normal limits. UA shows 2+ leukocyte esterase and 1+ blood. Urine test is negative Chest x-ray shows no evidence of acute cardiopulmonary disease. There is no focal opacification, pneumothorax or pleural effusion. Osseous structures are grossly unremarkable Patient symptoms at this time is consistent with right-sided rib pain with no evidence of acute fracture. Symptoms at this time is consistent with costochondritis or muscle strain secondary to fall do have low suspicion that patient has acute cholecystitis or gallstones as patient has had no nausea or vomiting and this has only been since her fall. She has a negative Ballard sign and really has no tenderness in the gallbladder area and her pain appears to be up higher along her ribs and patient appears to be more reproducible with movement or stretching. Patient was given Uvalda in the emergency department and pain improved. She will be given a prescription for Naprosyn and Macrobid for home At this time the patient is stable for discharge and outpatient management. Patient should follow up with their PCP in the next 1-2 days. They may return to the emergency department sooner for any persistent or worsening of symptoms. Patient understood and agreed with the plan. Departure Diagnosis: Primary Impression: Rib pain Additional Impression: UTI (urinary tract infection) Urinary tract infection type: site unspecified Hematuria presence: with hematuria Qualified Code: N39.0 - Urinary tract infection with hematuria, site unspecified Condition: ROXANA Wang PA-C Jun 23, 2017 09:12
[2017-06-23 09:25] LABS: BASOPHILS % 0.4 % (0.0-2.0); EOSINOPHILS # 0.3 10^3/ul (0.0-0.5); EOSINOPHILS % 3.2 % (0.0-7.0); HEMATOCRIT 40.1 % (37.0-47.0); HEMOGLOBIN 13.5 g/dl (12.0-16.0); LYMPHOCYTES # 1.8 10^3/ul (0.8-2.9); LYMPHOCYTES % 21.7 % (15.0-51.0); MEAN CORPUSCULAR HEMOGLOBIN 29.3 pg (29.0-33.0); MEAN CORPUSCULAR HGB CONC 33.7 g/dl (32.0-37.0); MEAN PLATELET VOLUME 9.4 fl (7.4-10.4); MONOCYTE # 0.6 10^3/ul (0.3-0.9); MONOCYTES % 6.8 % (0.0-11.0); NEUTROPHIL # 5.6 10^3/ul (1.6-7.5); NEUTROPHILS % 67.7 % (39.0-77.0); PLATELET COUNT 270 10^3/UL (140-415); RED BLOOD COUNT 4.61 10^6/ul (4.20-5.40); RED CELL DISTRIBUTION WIDTH 12.3 % (11.5-14.5); WHITE BLOOD COUNT 8.3 10^3/ul (4.8-10.8)
[2017-06-23 09:29] LABS: URINE BLOOD (Dip) POC 1+ (NEGATIVE)
[2017-06-23] MEDS ORDERED: HYDROCODONE/APAP (5/325) TAB PO ONE (09:30)
--- NOTE | 2017-06-23 09:49 | RADRPT ---
PROCEDURE: XR Chest. CLINICAL INDICATION: Trauma, fall, right sided pain. TECHNIQUE: Single frontal chest x-ray. COMPARISON: None available FINDINGS: The lungs are clear. No focal opacification is seen. No pneumothorax or pleural effusion is seen. The cardiomediastinal silhouette is unremarkable. The osseous structures are grossly unremarkable. IMPRESSION: No evidence of acute cardiopulmonary disease. If there is concern for rib fracture recommend dedi cated right rib series. RPTAT: JJ .Rgoer Valles MD, Date Time Electronically viewed and signed by .Roger Valles MD, on 06/23/2017 09:49 .A/
[2017-06-23 09:55] LABS: ALBUMIN 4.9 g/dl (3.3-4.9); ALBUMIN/GLOBULIN RATIO 1.36; BILIRUBIN,INDIRECT 0.5 mg/dl (0-1.1); BILIRUBIN,TOTAL 0.5 mg/dl (0.2-1.3); CALCIUM 10.5 mg/dl (8.4-10.2); CREATININE 0.75 mg/dl (0.44-1.00); POTASSIUM 4.5 mmol/L (3.5-5.1); TOTAL PROTEIN 8.5 g/dl (6.1-8.1)
[2017-06-23] MEDS ORDERED: NITR-58 PO (11:00)
[2017-06-23] MEDS ORDERED: NAPR-260 PO (11:01)
== END 2017-06-23 11:11 | disposition home or self-care (01) ==
LOC: FTE 08:27
DX: R07.81 Pleurodynia (principal); N39.0 Urinary tract infection, site not specified
CPT/HCPCS: 36415; 71010; 80053; 81003; 83690; 85025; Z7502; Z7610

== ENCOUNTER 2018-01-13 13:41 | Emergency (ER) | END 2018-01-13 16:26 | disposition home or self-care (01) ==

== ENCOUNTER 2018-05-05 16:05 | Emergency (ER) | END 2018-05-05 18:17 | disposition home or self-care (01) ==